=== PATIENT | male | born 1990 | race Two or more races ===

== ENCOUNTER → 2025-05-11 | Outpatient (CLI) | payer BC, SELFPAY ==
--- NOTE | 2025-05-11 15:20 | XR_ITS ---
Examination: Ribs, right, with PA chest, 5 views Technique: Chest PA, RIBS AP, RPO, LPO, AP coned lower ribs 5 views Exam date and time: May 11, 2025, 1530 hours INDICATIONS: Right flank pain rib pain 3 months Findings: Normal heart size No pneumothorax Clavicles and right ribs and left ribs appear intact No cortical bone obstruction IMPRESSION: No active disease in the chest No acute rib fractures
--- NOTE | 2025-05-11 15:20 | XR_ITS ---
Examination: Lumbar spine, 5 views Technique: Lumbar spine AP, lateral, coned lateral lower lumbar spine, bilateral obliques 5 views Exam date and time: May 11, 2025, 1530 hours INDICATIONS: Right flank pain lower back pain 3 months. FINDINGS: Adequate alignment lumbar vertebral bodies on the lateral view No lumbar fracture Mild disc narrowing L5-S1 No spondylolisthesis IMPRESSION: Mild disc narrowing L5-S1
== END | disposition home or self-care (01) ==
LOC: CDIM 15:12
PROVIDERS: PCP Nurse Practitioner Family; Referring Provider Nurse Practitioner Family; Visit Provider Nurse Practitioner Family
DX: M48.07 Spinal stenosis, lumbosacral region (principal); R07.9 Chest pain, unspecified
CPT/HCPCS: 71101; 72110